=== PATIENT | male | born 1980 | race Caucasian/White ===

== ENCOUNTER 2017-09-04 20:31 | Emergency (ER) | payer SELFPAY | END 2017-09-04 21:07 | disposition admitted as inpatient to this hospital (09) | LOC: ERH 20:31 | DX: Z76.0 Encounter for issue of repeat prescription (principal) ==

== ENCOUNTER 2017-09-08 20:38 | Inpatient (IN) | payer OTHER ==
[~2017-09-08] VITALS: Ht 177.8 cm; Wt 66.2 kg
--- NOTE | 2017-09-08 21:09 | ED GENERAL ADULT ---
History of Present Illness General Chief Complaint: Psychiatric Related Complaint Stated Complaint: BIBA +SI Source: patient Exam Limitations: poor historian Vital Signs & Intake/Output Vital Signs & Intake/Output Vital Signs Date Time Temp Pulse Resp B/P B/P Pulse O2 O2 Flow FiO2 Mean Ox Delivery Rate 09/09 1452 85 18 127/72 100 Room Air 09/09 1156 63 18 105/64 100 Room Air 09/09 0553 97.8 70 18 113/60 98 Room Air 09/09 0006 98.4 78 18 125/78 96 Room Air 09/08 2054 98.1 80 18 130/75 98 Room Air ED Intake and Output 09/09 0000 09/08 1200 Intake Total 0 Output Total Balance 0 Intake, Oral 0 Allergies Coded Allergies: NO KNOWN ALLERGIES (01/21/15) Triage Note: PT BIBA ON PEER AFTER MOM CALLED PD FOR PT STATEMENTS OF SI. PT DENIES SI/HI AT THIS TIME. REPORTS HE DID NOT MEAN IT "I HAVE TOO MUCH TO LIVE FOR." Triage Nurses Notes Reviewed? yes Onset: Abrupt Duration: hour(s): Timing: recent history HPI: 09/08/17 11:30 PM 37-year-old man expressed a desire to injure himself through text thing his girlfriend. Police were called and he was brought in by ambulance. He currently denies suicidal ideation. He admits to drinking some alcohol. He also admits to being on Suboxone and taking gabapentin. He is concerned about his job tomorrow, he has a second interview. (Star Posada DO) Reconcile Medications Buprenorphine HCl/Naloxone HCl (Suboxone 8 MG-2 MG Sl Film) 8 MG-2 MG FILM 1 STR SL DAILY MAINTENCE (Reported) Bupropion HCl (Bupropion XL) 150 MG TAB.ER.24H 1 TAB PO QAM MENTAL HEALTH ( Reported) Gabapentin 400 MG CAPSULE 1 CAP PO TID MENTAL HEALTH (Reported) (Felipe Chew DO) Past History Travel History Traveled to [place] past 21 day No Medical History Any Pertinent Medical History? see below for history Neurological: NONE EENT: NONE Cardiovascular: NONE Respiratory: NONE Gastrointestinal: NONE Hepatic: NONE Renal: NONE Musculoskeletal: NONE Psychiatric: NONE Endocrine: NONE Surgical History Surgical History: N Psychosocial History What is your primary language Occitan Tobacco Use: Never used Family History Hx Contributory? No (Star Posada DO) Review of Systems Review of Systems Constitutional: Denies: fever. EENTM: Reports: no symptoms. Respiratory: Reports: no symptoms. Cardiovascular: Reports: no symptoms. GI: Reports: no symptoms. Genitourinary: Reports: no symptoms. Musculoskeletal: Reports: no symptoms. Skin: Reports: no symptoms. Neurological/Psychological: Reports: anxiety, depressed. Hematologic/Endocrine: Reports: no symptoms. Immunologic/Allergic: Reports: no symptoms. (Star Posada DO) Physical Exam Physical Exam General Appearance: well developed/nourished, alert, awake, anxious, moderate distress Head: atraumatic, normal appearance Eyes: Bilateral: normal appearance, PERRL, EOMI. Ears, Nose, Throat: normal pharynx, normal ENT inspection Neck: normal inspection Respiratory: no respiratory distress Cardiovascular: regular rate/rhythm Peripheral Pulses: 4+ radial (R), 4+ radial (L) Gastrointestinal: non-tender Back: normal range of motion Extremities: normal inspection Neurologic/Psych: no motor/sensory deficits, awake, alert, oriented x 3 Skin: intact, normal color, warm/dry Core Measures ACS in differential dx? No CVA/TIA Diagnosis: No Sepsis Present: No Sepsis Focused Exam Completed? No (Star Posada DO) Progress Differential Diagnoses I considered the following diagnoses in my evaluation of the patient: [ Depression, suicidal ideation, substance abuse] Plan of Care: Orders Procedure Date/time Status Regular Diet 09/09 B Active Admit to inpatient psych 09/09 1628 Active ED CRISIS PSYCH CONSULT 09/09 0036 Active EKG 09/08 2327 Active Add-on Test (ER Only) 09/08 2141 Active Continuous Observation Monitor 09/08 2141 Active ED CRISIS PSYCH CONSULT 09/08 2141 Active ETHANOL 09/08 2105 Complete URINE DRUG SCREEN FOR ER ONLY 09/08 2057 Complete CBC WITHOUT DIFFERENTIAL 09/08 2057 Complete BASIC METABOLIC PANEL 09/08 2057 Complete Current Medications Sig/Abhishek Start time Last Medication Dose Stop Time Status Admin Lorazepam 1 MG ONE ONE 09/09 1630 UNVr (Ativan) 09/09 1631 Benztropine Mesylate 1 MG Q6P PRN 09/09 0915 UNVr (Cogentin 1 MG Tablet) Haloperidol 5 MG Q6P PRN 09/09 0915 UNVr (Haldol) Lorazepam 2 MG Q6P PRN 09/09 0915 UNVr (Ativan) Gabapentin 400 MG Q8 09/09 0035 UNVr 09/09 (Neurontin) 1326 Laboratory Tests 09/08/172105: Serum Alcohol < 10.0 09/08/172105: Anion Gap 12, Estimated GFR > 60, BUN/Creatinine Ratio 14.4, Glucose 78, Calcium 9.3, CBC w Diff NO MAN DIFF REQ, RBC 4.28 L, MCV 88.8, MCH 30.6, MCHC 34.4, RDW 12.6, MPV 7.1 L, Gran % 54.3, Lymphocytes % 32.4, Monocytes % 9.0, Eosinophils % 3.9, Basophils % 0.4, Absolute Granulocytes 2.5, Absolute Lymphocytes 1.5, Absolute Monocytes 0.4, Absolute Eosinophils 0.2, Absolute Basophils 0, Urine Opiates Screen 932.00, Methadone Screen < 40, Barbiturate Screen < 60, Ur Phencyclidine Scrn < 6.00, Amphetamines Screen 500, U Benzodiazepines Scrn 134, Urine Cocaine Screen > 1000 H, Urine Cannabis Screen < 5.00 Initial ED EKG: none (Star Posada DO) Comments: 1138 hrs.: Discussed case with crisis staff. Involuntary commitment order completed, patient denying SI at present but his collateral comes from a 17 year long significant other relationship who states that he was testing her yesterday stating that she should stay goodbye to the kids for him and that he wished to . Bed search continues. 1628 hrs.: Crisis staff has completed her evaluation and recommended inpatient hospitalization here as a bed has now become available. I prescribed lorazepam 1 mg by mouth at the recommendation of crisis staff for the patient's ongoing agitation. (Felipe Chew DO) Departure Departure Condition: Stable Referrals: Patient Has No Primary Care Dr Departure Forms: Customer Survey General Discharge Information Comments The patient was signed out to Dr. Rojas at 11 PM. Pending evaluation by crisis. (Star Posada DO) Departure Disposition: STILL A PATIENT Clinical Impression Primary Impression: Cocaine abuse Secondary Impressions: Opioid abuse Comments pt to be signed out to dr. chew, 09/09/17, 7am, pending crises eval. (Crystal BATES,Zacarias Oh) Departure Time of Disposition: 1628 Psych Admission Note Psychiatric Admission: I have seen and evaluated AIDEN AVINA. I have also reviewed all the pertinent lab results and diagnostic results. AIDEN AVINA will be admitted to our inpatient Psychiatric unit for treatment and care. (Felipe Chew DO) Critical Care Note Critical Care Note Critical Care Time: 30-74 min (Star Posada DO)
[2017-09-08 21:18] LABS: ABSOLUTE BASOPHIL COUNT 0 /CUMM (0.0-0.2); ABSOLUTE EOSINOPHIL COUNT 0.2 /CUMM (0.0-0.7); ABSOLUTE GRANULOCYTE CT 2.5 /CUMM (1.4-6.5); ABSOLUTE LYMPH COUNT 1.5 /CUMM (1.2-3.4); ABSOLUTE MONOCYTE COUNT 0.4 /CUMM (0.10-0.60); BASOPHIL % 0.4 % (0.0-2.0); EOSINOPHIL % 3.9 % (0-5); GRANULOCYTE % 54.3 % (42.2-75.2); MEAN CORPUSCULAR HGB 30.6 PG (27.0-31.0); MEAN CORPUSCULAR HGB CONC 34.4 G/DL (33.0-37.0); MEAN CORPUSCULAR VOLUME 88.8 FL (80.0-94.0); MEAN PLATELET VOLUME 7.1 FL (7.4-10.4); PLATELET COUNT 304 /CUMM (130-400); RBC DISTRIBUTION WIDTH 12.6 % (11.5-14.5); RED BLOOD CELL CT 4.28 /CUMM (4.70-6.10); WHITE BLOOD CELL COUNT 4.5 /CUMM (4.8-10.8)
[2017-09-09] MEDS ORDERED: BUPROPION XL150 MG PO (08:25)
[2017-09-09] MEDS ORDERED: SUBOXONE 8 MG-1 EACH SL (08:25)
[2017-09-09] MEDS ORDERED: GABAPENTIN400 M2 PO (08:26)
--- NOTE | 2017-09-09 08:28 | ED PSYCH CRISIS CONSULTATION ---
Crisis Consult Basic Assessment Date of Consult: 09/09/17 Responsible Person/Accompanied By: self/biba/PEER Insurance Authorization: Insurance #1: Insurance name: SELF-PAY Phone number: Policy number: Group number: Authorization number: ED Provider: Patient's ED Provider: Star Posada DO Primary Care Physician: Patient's PCP: Viv Dang MD PCP's Current Psychiatrist: Viv Dang MD [phone] Chief Complaint: Psychiatric Related Complaint Patient's Quote: I was texting my gf. It was a dumb rant. Present Illness: Pt is a 37yo male biba last evening on an [place] [employer] PEER. The PEER documents that pt told his mother "I don't want to live anymore". Collateral provided by pt gf of 17yrs reports that pt sent her text yesterday " I'm taking my life and tell the kids I love them". Pt states he sent gf a text stating I'm sick of this stress. I want it to end. Pt states he is not suicidal and his text meant he wanted things to get better not end his life. Pt reports he would never kill himself stating "I would never do it to my kids or mother". Pt reports no prior psychiatric treatment hx. Pt reports a hx of oxycodone abuse and has been prescribed suboxone past 2 yrs at [facility] Current prescriber is Viv Dang at [facility] Pt reports he is also prescribed gabapentin and wellbutrin. Pt reports he is to begin court mandated treatment at [facility] today. Gf reports pt was at [facility] detox 2 weeks ago but has been using etoh and crack cocaine againe. Pt urine tox is positive for cocaine. Pt denies taking cocaine states "his friend got some percocets from "the dark web" that may have been laced with cocaine that he used. Pt reports recent decrease in etoh use and reports 3-4 beers 2x/wk. Pt reports recent financial stress due to not working since the fall. 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 Pt reports a hx of arrest for possession charges and open container charge. Pt denies gun access. Pt denies HI/AH/VH. Patient's Address: [address] [place] [address] Other Phone Number: Who Do You Live With? Family (fiance and 2 children) Family/Informants Interviewed: collateral provided by pt gf Therese Villanueva . She reports pt sent her a text yesterday "I'm taking my life and tell the kids I love them". She reports concern that pt has been stealing and pawning her belongings and she had him arrested the otherd . She reports he also had a DUI last week and has violated his probation. She reports he detoxed two weeks ago at [facility] but is using crack cocaine and alcohol again. She reports they have been together 17 yrs and she and his family are worried he is "going down hill" and he is going to hurt himself intentioanlly or unintentionally. Allergies - Coded Allergies: NO KNOWN ALLERGIES (01/21/15) Current Medications - Scheduled Medications Buprenorphine HCl/Naloxone HCl (Suboxone 8 MG-2 MG Sl Film) 8 MG-2 MG FILM 1 STR SL DAILY MAINTENCE #15 (Reported) Entered as Reported by Jeffrey Jackson on 09/09/17 0825 Bupropion HCl (Bupropion XL) 150 MG TAB.ER.24H 1 TAB PO QAM MENTAL HEALTH #15 (Reported) Entered as Reported by Jeffrey Jackson on 09/09/17 0825 Gabapentin 400 MG CAPSULE 1 CAP PO TID MENTAL HEALTH #180 (Reported) Entered as Reported by Jeffrey Jackson on 09/09/17 0826 Laboratory Results: Laboratory Tests 09/08/172105: Serum Alcohol < 10.0 09/08/172105: Anion Gap 12, Estimated GFR > 60, BUN/Creatinine Ratio 14.4, Glucose 78, Calcium 9.3, CBC w Diff NO MAN DIFF REQ, RBC 4.28 L, MCV 88.8, MCH 30.6, MCHC 34.4, RDW 12.6, MPV 7.1 L, Gran % 54.3, Lymphocytes % 32.4, Monocytes % 9.0, Eosinophils % 3.9, Basophils % 0.4, Absolute Granulocytes 2.5, Absolute Lymphocytes 1.5, Absolute Monocytes 0.4, Absolute Eosinophils 0.2, Absolute Basophils 0, Urine Opiates Screen 932.00, Methadone Screen < 40, Barbiturate Screen < 60, Ur Phencyclidine Scrn < 6.00, Amphetamines Screen 500, U Benzodiazepines Scrn 134, Urine Cocaine Screen > 1000 H, Urine Cannabis Screen < 5.00 Past History Past Medical History Neurological: NONE EENT: NONE Cardiovascular: NONE Respiratory: NONE Gastrointestinal: NONE Hepatic: NONE Renal: NONE Musculoskeletal: NONE Psychiatric: NONE Endocrine: NONE Past Surgical History Surgical History: none Psychosocial History Strengths/Capabilities: drives a fork lift. Reports committment to reduce substance use Psychiatric Treatment History Psych Treatment Psychiatric Treatment No Inpatient Treatment No Outpatient Treatment No Substance Use/Abuse History Drug Use/Abuse 1 Substances Used/Abused Yes Substance Used/Abused Prescribed Opiates (Suboxone) First Use 2 yrs ago Last Used yesterday How often daily For how long 2 yrs Drug Use/Abuse 2 Substances Used/Abused Yes Substance Used/Abused Alcohol How much used/taken 3-4 beers How often 2x/wk Drug Use/Abuse 3 Substances Used/Abused Yes Substance Used/Abused Crack Cocaine Last Used postive tox screen for cocaine-pt minimizes use Substance Abuse Treatment Substance Abuse Treatment Past Substance Abuse TX Yes Inpatient Treatment Yes Outpatient Treatment Yes Location of Treatment [facility]; [facility] [place] Reason for Treatment etoh, cocaine and opiates Dates of Treatment pt reports starting suboxone 2 yrs ago; reports pt detoxed two weeks ago Response to Treatment urine tox screen is positive for cocaine Comments: pt reports hx of oxycodone abuse and starting suboxone tx 2 yrs ago at [facility] Pt minimizing etoh and cocaine use. Gf reports pt has significant problems with both. She reports he is smoking crack and received a dui last week. Current Mental Status Mental Status Orientation: Person, Place, Situation Affect: Anxious Speech: Pressured, WNL Neuro-vegetative: WNL Appearance Appearance- Dress/Hygiene: hospital scrubs; tattoos; eyes blood shot. Behaviors Thought Process: Irrational Thought Content: WNL Memory: WNL Insight: Poor SI/HI Risk Assessment Past Suicidal Ideation/Attempts No Current Suicidal Ideation/Att No (pt denies) Past Homicidal Ideation/Att: No Current Homicidal Ideation/Attempts No Degree of Intent: None Danger To: Self Gravely Disabled: Lack of Insight, Poor Impulse Control, Poor Judgment Risk Factors: high anxiety/distress, substance abuse, poor impulse control, male Lethality Ratin PTSD Checklist PTSD Done? patient declined ED Management Sitter: Yes Restraints: No DSM5/PS Stressors/Medical Prob Diagnosis' (DSM 5, Stressors, Medical): Unspecified Depressive D/O F32.9 Cocaine Use D/O F14.20 Opiate Use D/O in maintenance therapy F11.20 Alcohol Use D/O F10.20 family/relationship conflict legal issues unemployment Current GAF: 25 Comments: Pt admits to stress in his relationships and having difficulty getting a job. Pt agrees he sent suicidal texts messages but denies plan or intent. Departure Disposition Psych Medical Clearance Date: 09/09/17 Medically Cleared at: 0730 Time Started: 729 Time Ended: 814 Psychiatrist Consulted: Felix Gold MD (Felix Gold MD) Date Disposition Established: 09/09/17 Time Disposition Established: 844 Plan for Disposition - Modality: Inpatient Psychiatry Referrals Laurence BATES,Viv Ford (PCP/Family)
--- NOTE | 2017-09-09 13:55 | ED PSY CRISIS COLLATERAL NOTE ---
Collateral Note Collateral Note Family/Inform/Luis A Contacts: Recieved call from Viv Dang MD [phone] from the [facility]. She states she saw the pt once on 09/03/17. She prescribed him a 2 week supply of suboxone. He is scheduled to see her weekly. Her plan is to decrease gabepentin (currently 800mg) due to sedation. She reports previous prescriber was Dr. Joe Bull who last saw pt on 08/06/17.
--- NOTE | 2017-09-09 16:02 | IP CRISIS DIAG ASSESS PSYCH ---
See Addendum Diagnostic Assessment Basic Assessment Insurance Authorization: Insurance #1: Insurance name: BENNETT IVORY Phone number: Policy number: [id number] Group number: Authorization number: [id number] Primary Care Physician: Patient's PCP: Laurence BATES,Viv Ford PCP's Patient's Quote: I was texting my gf. It was a dumb rant. Present Illness: Pt is a 37yo male biba last evening on an [place] [employer] PEER. The PEER documents that pt told his mother "I don't want to live anymore". Collateral provided by pt gf of 17yrs reports that pt sent her text yesterday " I'm taking my life and tell the kids I love them". Pt states he sent gf a text stating I'm sick of this stress. I want it to end. Pt states he is not suicidal and his text meant he wanted things to get better not end his life. Pt reports he would never kill himself stating "I would never do it to my kids or mother". Pt reports no prior psychiatric treatment hx. Pt reports a hx of oxycodone abuse and has been prescribed suboxone past 2 yrs at [facility]. Current prescriber is Viv Dang at [facility]. Pt reports he is also prescribed gabapentin and wellbutrin. Pt reports he is to begin court mandated treatment at [facility] today. Gf reports pt was at [facility] detox 2 weeks ago but has been using etoh and crack cocaine againe. Pt urine tox is positive for cocaine. Pt denies taking cocaine states "his friend got some percocets from "the dark web" that may have been laced with cocaine that he used. Pt reports recent decrease in etoh use and reports 3-4 beers 2x/wk. Pt reports recent financial stress due to not working since the fall. 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 Pt reports a hx of arrest for possession charges and open container charge. Pt denies gun access. Pt denies HI/AH/VH. Patient's Address: [address] [place] [address] Other Phone Number: Who Do You Live With? Family (fiance and 2 children) Feel Safe Where You Live? Yes Feel Safe in Your Relationship Yes Marital Status: single Do You Have Children? Yes Ages? 16,9 Primary Language? Singaporean Language(s) Spoken At Home: Singaporean Family/Informants Interviewed: collateral provided by pt gf Therese Villanueva . She reports pt sent her a text yesterday "I'm taking my life and tell the kids I love them". She reports concern that pt has been stealing and pawning her belongings and she had him arrested the otherd . She reports he also had a DUI last week and has violated his probation. She reports he detoxed two weeks ago at [facility] but is using crack cocaine and alcohol again. She reports they have been together 17 yrs and she and his family are worried he is "going down hill" and he is going to hurt himself intentioanlly or unintentionally. Allergies - Coded Allergies: NO KNOWN ALLERGIES (01/21/15) Current Medications - Scheduled Medications Buprenorphine HCl/Naloxone HCl (Suboxone 8 MG-2 MG Sl Film) 8 MG-2 MG FILM 1 STR SL DAILY MAINTENCE #15 (Reported) Entered as Reported by Jeffrey Jackson on 09/09/17 0825 Bupropion HCl (Bupropion XL) 150 MG TAB.ER.24H 1 TAB PO QAM MENTAL HEALTH #15 (Reported) Entered as Reported by Jeffrey Jackson on 09/09/17 0825 Gabapentin 400 MG CAPSULE 1 CAP PO TID MENTAL HEALTH #180 (Reported) Entered as Reported by Jeffrey Jackson on 09/09/17 0826 Consequences of Psych Med Use: pt reports Dr Dang plans to decrease his wellbutrin and try him on an anti anxiety med Lab Results: Laboratory Tests 09/08/172105: Serum Alcohol < 10.0 09/08/172105: Anion Gap 12, Estimated GFR > 60, BUN/Creatinine Ratio 14.4, Glucose 78, Calcium 9.3, CBC w Diff NO MAN DIFF REQ, RBC 4.28 L, MCV 88.8, MCH 30.6, MCHC 34.4, RDW 12.6, MPV 7.1 L, Gran % 54.3, Lymphocytes % 32.4, Monocytes % 9.0, Eosinophils % 3.9, Basophils % 0.4, Absolute Granulocytes 2.5, Absolute Lymphocytes 1.5, Absolute Monocytes 0.4, Absolute Eosinophils 0.2, Absolute Basophils 0, Urine Opiates Screen 932.00, Methadone Screen < 40, Barbiturate Screen < 60, Ur Phencyclidine Scrn < 6.00, Amphetamines Screen 500, U Benzodiazepines Scrn 134, Urine Cocaine Screen > 1000 H, Urine Cannabis Screen < 5.00 Toxicology Screen Completed? Yes Results: positive Symptoms of Use: collateral reports pt is using crack cocaine Past History Abuse/Trauma History Trauma History/Current Trauma: Denies Legal History Current Legal Status: alcohol/drug legal problm, on probation Have you ever been arrested? 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 Psychiatric Treatment History Psych Treatment Psychiatric Treatment No Inpatient Treatment No Outpatient Treatment No Risk Factors: high anxiety/distress, substance abuse, poor impulse control, male Substance Use/Abuse History Drug Use/Abuse minimum 12mo Hx Substances Used/Abused Yes Substance Used/Abused Crack Cocaine First Use 2 yrs ago Last Used postive tox screen for cocaine-pt minimizes use How much used/taken 3-4 beers How often 2x/wk For how long 2 yrs Substance Abuse Treatment Substance Abuse Treatment Past Substance Abuse TX Yes Inpatient Treatment Yes Outpatient Treatment Yes Location of Treatment [facility]; [facility] [place] Reason for Treatment etoh, cocaine and opiates Dates of Treatment pt reports starting suboxone 2 yrs ago; reports pt detoxed two weeks ago Response to Treatment urine tox screen is positive for cocaine Education History Highest Level of Education: high school/GED Preferred Learning Style: visual, auditory, experiential Current Mental Status Mental Status Orientation: Person, Place, Situation Affect: Anxious Speech: Pressured, WNL Neuro-vegetative: WNL Appearance Appearance- Dress/Hygiene: hospital scrubs; tattoos; eyes blood shot. Behaviors Thought Process: Irrational Thought Content: WNL Memory: WNL Insight: Poor SI/HI Risk Assessment - Minimum 6mo History- Past Suicidal Ideation/Attempts No Current Suicidal Ideation/Att No (pt denies) Past Homicidal Ideation/Att: No Current Homicidal Ideation/Attempts No Degree of Intent: None Danger To: Self Gravely Disabled: Lack of Insight, Poor Impulse Control, Poor Judgment Risk Factors: high anxiety/distress, substance abuse, poor impulse control, male Lethality Ratin Needs/Init TX Plan/Goals: Psychiatric Evaluation Medication assessment Individual, family and group meetings Coordinated discharge planning AUDIT-C Questionnaire: AUDIT-C Questionnaire: Response Value ETOH use in the past year 4 or more per week 4 # drinks typical/day 10 or more 4 6 or > drinks per occasion Daily/Almost Daily 4 Total 12 DSM5/PS Stressors/Medical Prob Diagnosis' (DSM 5, Stressors, Medical): Unspecified Depressive D/O F32.9 Cocaine Use D/O F14.20 Opiate Use D/O in maintenance therapy F11.20 Alcohol Use D/O F10.20 family/relationship conflict legal issues unemployment Current GAF: 25 Comments: Pt admits to stress in his relationships and having difficulty getting a job. Pt agrees he sent suicidal texts messages but denies plan or intent.
[2017-09-09 18:58] VITALS: BP 121/68
--- NOTE | 2017-09-09 20:07 | History & Physical ---
General Information and HPI MD Statement: I have seen and personally examined AIDEN AVINA and documented this H&P. The patient is a 37 year old M who presented with a patient stated chief complaint of [depression, ?SI]. Source of Information: patient Exam Limitations: no limitations History of Present Illness: 37 yo M with h/o anxiety, depression, substance (oxycodone) abuse on suboxone from [facility], is admitted to Inpatient Psychiatry for depression and possible suicidal ideation. Patient reports he was frustrated and angry with his girlfriend, so he made some comments on his texts to his girlfriend, although he reports having no intention of harming himself. Please refer to Psych H and P for full details. He has a h/o alcohol abuse and recently finished alcohol detox at [facility]. He did take 1 drink with his meals since he finished his detox but reports not consuming heavily. He states he ran out of suboxone so took Percocet off the street and thinks it was contaminated with cocaine. He denies using cocaine. He denies IV drug use. Patient is frustrated that he does not have a job, and he missed his interview appointment that was scheduled for today. He currently denies chest pain, palpitations, dyspnea, GI or symptoms. Allergies/Medications Allergies: Coded Allergies: NO KNOWN ALLERGIES (01/21/15) Home Med list Buprenorphine HCl/Naloxone HCl (Suboxone 8 MG-2 MG Sl Film) 8 MG-2 MG FILM 1 STR SL DAILY MAINTENCE (Reported) Bupropion HCl (Bupropion XL) 150 MG TAB.ER.24H 1 TAB PO QAM MENTAL HEALTH ( Reported) Gabapentin 400 MG CAPSULE 1 CAP PO TID MENTAL HEALTH (Reported) Compliance With Home Meds: POOR Past History Travel History Traveled to [place] past 21 day No Medical History Neurological: NONE EENT: NONE Cardiovascular: NONE Respiratory: NONE Gastrointestinal: NONE Hepatic: NONE Renal: NONE Musculoskeletal: NONE Psychiatric: anxiety, depression, substance abuse Endocrine: NONE Isolation History: Standard Surgical History Surgical History: none Past Family/Social History Family History Relations & Conditions if any Relation not specified for: *No pertinent family history Psychosocial History Where do you live? Home Who Do You Live With? self Services at Home: None Primary Language: Montserratian Smoking Status: Current Everyday Smoker ETOH Use: occasional use Illicit Drug Use: cocaine, oxycodone Functional Ability ADLs Independent: dressing, eating, toileting, bathing. Ambulation: independent Review of Systems Review of Systems Constitutional: Denies: chills, fever, malaise, weakness. EENTM: Reports: no symptoms. Cardiovascular: Denies: chest pain, orthopena, palpitations, syncope. Respiratory: Denies: cough, short of breath, sputum production. GI: Denies: abdominal pain, diarrhea, nausea, vomiting. Genitourinary: Denies: dysuria, frequency, nocturia. Musculoskeletal: Denies: back pain, joint pain, muscle pain. Neurological/Psychological: Reports: see HPI. All Other Systems: Reviewed and Negative Exam & Diagnostic Data Last 24 Hrs of Vital Signs/I&O Vital Signs Date Time Temp Pulse Resp B/P B/P Pulse O2 O2 Flow FiO2 Mean Ox Delivery Rate 09/09 1858 97.7 67 121/68 09/09 1722 98.8 85 18 132/67 99 Room Air 09/09 1452 85 18 127/72 100 Room Air 09/09 1156 63 18 105/64 100 Room Air 09/09 0553 97.8 70 18 113/60 98 Room Air 09/09 0006 98.4 78 18 125/78 96 Room Air 09/08 2054 98.1 80 18 130/75 98 Room Air Intake & Output 09/09 1600 09/09 0800 09/09 0000 Intake Total 0 Output Total Balance 0 Intake, Oral 0 Physical Exam General Appearance Alert, Oriented X3, Cooperative, No Acute Distress Skin No Rashes, No Breakdown HEENT Atraumatic, EOMI, Mucous Membr. moist/pink Neck Supple Cardiovascular Regular Rate, Normal S1, Normal S2, No Murmurs Lungs Clear to Auscultation, Normal Air Movement Abdomen Normal Bowel Sounds, Soft, No Tenderness Neurological Exam Findings: Normal Gait, Normal Speech, Strength at 5/5 X4 Ext, Cranial Nerves 3-12 NL Cranial Nerves II through XII: Intact Extremities No Edema, Normal Pulses, No Tenderness/Swelling Last 24 Hrs of Labs/Mann: Laboratory Tests 09/08/172105: Serum Alcohol < 10.0 09/08/172105: Anion Gap 12, Estimated GFR > 60, BUN/Creatinine Ratio 14.4, Glucose 78, Calcium 9.3, CBC w Diff NO MAN DIFF REQ, RBC 4.28 L, MCV 88.8, MCH 30.6, MCHC 34.4, RDW 12.6, MPV 7.1 L, Gran % 54.3, Lymphocytes % 32.4, Monocytes % 9.0, Eosinophils % 3.9, Basophils % 0.4, Absolute Granulocytes 2.5, Absolute Lymphocytes 1.5, Absolute Monocytes 0.4, Absolute Eosinophils 0.2, Absolute Basophils 0, Urine Opiates Screen 932.00, Methadone Screen < 40, Barbiturate Screen < 60, Ur Phencyclidine Scrn < 6.00, Amphetamines Screen 500, U Benzodiazepines Scrn 134, Urine Cocaine Screen > 1000 H, Urine Cannabis Screen < 5.00 Diagnostic Data EKG Results Sinus rhythm, no acute changes. Assessment/Plan Assessment: 37 yo M with h/o substance use disorder on suboxone therapy, is admitted for management of depression and SI. - Continue management as per Psych team. - Smoking cessation counseling. DVT ppx - low risk, early ambulation. As Ranked By This Provider Problem List: 1. Cocaine abuse 2. Opioid abuse Miscellaneous Miscellaneous Documentation Attending Case Discussed With: Mak Soto MD Primary Care Physician: Viv Dang MD Patient sees these Specialists -- Level of Patient Care: AURELIO Snider MD Review Statement Attending Statement Attending MD Statement: examined this patient, discuss w/resident/PA/MECHANOTHERAPIST
--- NOTE | 2017-09-09 20:07 | Admission Certification ---
Admission Certification Certification Statement - As attending physician, I certify that at the time of - admission, based on clinical presentation, severity of - symptoms, need for further diagnostic testing and - therapeutic interventions, and risk of adverse outcomes - without in-hospital treatment, in my clinical assessment, - this patient requires an acute hospital stay for a minimum - of two nights or longer. I have also considered psychsocial - factors such as support system, advanced age, financial - issues, cognitive issues, and failed out-patient treatments, - past re-admission history, safety of patient, and lack of - compliance as applicable. Specific rationale supporting this admission is: Depression.
[2017-09-10 07:39] VITALS: BP 122/60
[2017-09-10 12:23] VITALS: BP 108/65
--- NOTE | 2017-09-10 13:42 | SOCIAL WORKER PROG NOTE PSYCH ---
Social Work Progress Note Progress Note Carlos Enrique was given paperwork this morning from the police notifying him of his court date on 09/18. Carlos Enrique reports he really shouldn't be here and that his girlfriend of 17 years lied about him being suicidal so he can get help. He seemed pressured this morning surrounding these circumstances. Later in the afternoon, Carlos Enrique appeared calmer and less pressured about leaving. He seemed okay with the plan to contact his girlfriend Helene and have her come in in the next day or two for a family meeting. He denies current SI and says he has never been suicidal. He denies HI, denies feeling sad (only about being in the hospital). Reports some anxiety rating it as a 6 on a scale from 0-10 (10 being most severe). Triggers for anxiety seem to be around fighting with his girlfriend and just keeping up with the structure of the day and getting his kids to where they need to go. Asked what he and his girlfriend seem to fight about? He said "finances." He has been collecting unemployment up until May. He is now looking to find a job. Reports it has been difficult to find employment in the salary he is looking for. He was finally offered a position and was supposed to start this past Thursday and he ended up here. I asked if he had contacted them? He said he hadn't and needed the phone number. I offered to look up the number for him. I gave him the number for [employer]. He wasn't sure if it was the correct number, but he would try it. He is hoping to some how save this job. Talked about detoxing from alcohol at [facility] for 7 days and then having scheduled follow up for [facility] yesterday, which he ended up missing. He discharged from detox on August 20. Admits to having a drink or two a week since then. He denied other substance use, but then said he took some Percocet for a few days that was laced with Cocaine. He is on Suboxone through [email or web address]. He sees Dr. Dang. He only goes there for med management. Probation mandated the IOP tx and he said he is going to do that with [facility]. He signed a release for them. Overall affect appeared appropriate. Smiled occasionally. Left Helene Villanueva [phone] a voicemail about setting up a family meeting. She called back and scheduled for tomorrow at 3:15pm.
--- NOTE | 2017-09-10 14:46 | CPS PROVIDER INIT ASMT PSYCH ---
Psychiatric Admission Rat Culturist's Note Reviewed: Yes Patient Seen and Examined: Yes Identifying Information: The patient is a 37-year-old single white male Chief Complaint: The patient insists that his girlfriend lied in order to get him to the emergency room. However, notes from the crisis indicated that he did acknowledge that his texting his girlfriend was "a dumb rant" Reaction to Hospitalization: The patient was very displeased with being in the hospital he is on a physician emergency certificate History of Present Illness Onset of Illness: Pt is a 37yo male biba last evening on an [place] [employer] PEER. The PEER documents that pt told his mother "I don't want to live anymore". Collateral provided by pt gf of 17yrs reports that pt sent her text yesterday " I'm taking my life and tell the kids I love them". Pt states he sent gf a text stating I'm sick of this stress. I want it to end. Pt states he is not suicidal and his text meant he wanted things to get better not end his life. Pt reports he would never kill himself stating "I would never do it to my kids or mother". Pt reports no prior psychiatric treatment hx. Pt reports a hx of oxycodone abuse and has been prescribed suboxone past 2 yrs at [facility]. Current prescriber is Viv Dang at [facility]. Pt reports he is also prescribed gabapentin and wellbutrin. Pt reports he is to begin court mandated treatment at [facility] today. Gf reports pt was at [facility] detox 2 weeks ago but has been using etoh and crack cocaine againe. Pt urine tox is positive for cocaine. Pt denies taking cocaine states "his friend got some percocets from "the dark web" that may have been laced with cocaine that he used. Pt reports recent decrease in etoh use and reports 3-4 beers 2x/wk. Pt reports recent financial stress due to not working since the fall. 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 Pt reports a hx of arrest for possession charges and open container charge. Pt denies gun access. Pt denies HI/AH/VH. Circumstances Leading to Admission: Pt is a 37yo male biba last evening on an [place] [employer] PEER. The PEER documents that pt told his mother "I don't want to live anymore". Collateral provided by pt gf of 17yrs reports that pt sent her text yesterday " I'm taking my life and tell the kids I love them". Pt states he sent gf a text stating I'm sick of this stress. I want it to end. Pt states he is not suicidal and his text meant he wanted things to get better not end his life. Pt reports he would never kill himself stating "I would never do it to my kids or mother". Pt reports no prior psychiatric treatment hx. Pt reports a hx of oxycodone abuse and has been prescribed suboxone past 2 yrs at [facility]. Current prescriber is Viv Dang at [facility]. Pt reports he is also prescribed gabapentin and wellbutrin. Pt reports he is to begin court mandated treatment at [facility] today. Gf reports pt was at [facility] detox 2 weeks ago but has been using etoh and crack cocaine againe. Pt urine tox is positive for cocaine. Pt denies taking cocaine states "his friend got some percocets from "the dark web" that may have been laced with cocaine that he used. Pt reports recent decrease in etoh use and reports 3-4 beers 2x/wk. Pt reports recent financial stress due to not working since the fall. 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 Pt reports a hx of arrest for possession charges and open container charge. Pt denies gun access. Pt denies HI/AH/VH. Problem(s) Justifying Need for Admission: See above Other HPI: See up Past Psychiatric History Past Diagnosis(es)- if any: See above Past Precipitating Factors- if any: See above - Include inpatient and outpatient treatment Treatment History: See above History of Suicide Attempts or Gestures Denied Substance Abuse History: The patient has history of opioid use disorder currently on Suboxone maintenance , a acknowledge that he ran out of Suboxone and used what he thought was a Percocet pill but he reported that he admits to being cuts with cocaine Allergies: Coded Allergies: NO KNOWN ALLERGIES (01/21/15) Home Med List: Suboxone 8 mg daily - Include any medical condition(s) that may - impact the patient's recovery/remission Past History Medical History Neurological: NONE EENT: NONE Cardiovascular: NONE Respiratory: NONE Gastrointestinal: NONE Hepatic: NONE Renal: NONE Musculoskeletal: NONE Psychiatric: anxiety, depression, substance abuse Endocrine: NONE Blood Disorders: NONE Cancer(s): NONE STATION MASTER/Reproductive: NONE History of MRSA: No History of VRE: No History of CDIFF: No Isolation History: Standard Surgical History Surgical History: non-contributory Psychiatric Family/Social Hx Family History Psychiatric Illness: Was not explored Substance Use: Was not explored Suicides: Was not explored Social History Living Situation: Was living with long-term partner on the mother of his children for 17 years Significant Relationships (family/friends): Girlfriend/mother of his children Education: C biopsychosocial assessment by high school social studies tutor Vocation/Occupation: See the biopsychosocial assessment by the high school social studies tutor Legal: See the biopsychosocial assessment by the high school social studies tutor Healthly Behaviors Screening Tobacco Screening Tobacco Use from ED Docu: Never used - If tobacco counseling indicated - the following topics are required. - #1 Recognizing dangerous situations. - #2 Coping Skills. - #3 Basic information about quitting. Status of Tobacco Cessation Counseling: Not Applicable Cessation Med Status Not Applicable Alcohol Screening - ETOH screen POS if BAL >=80 or Audit-C>= M4/F3 Audit-C Score from Diag Assess: 12 Blood Alcohol Level: Laboratory Tests 09/08 2105 Toxicology Serum Alcohol (<10 MG/DL) < 10.0 Alcohol Use Screening Results: Pos per Audit C &/or BAL - If ETOH counseling indicated - the following topics are required. - #1 Express concern about the patient's - drinking at unhealthy levels, include informing - of national norms for moderate drinking: - men <= 14 drinks/week, max 4 drinks/occasion - women <= 7 drinks/week, max 3 drinks/occasion - #2 Providing feedback, including linking alcohol to - negative physical effects (liver injury, hypertension) - negative emotional effects (relationship problems and - depression) - negative occupational consequences (reduced work - performance) - #3 Advising the patient to abstain from alcohol or - to drink below national norms for moderate drinking - (as listed above). Status of ETOH Use Counseling: #1, #2 AND #3 Completed. Metabolic Screening - Screen if on a Neuroleptic Medication - Metabolic screening should include: - Blood Pressure, BMI, Glucose or Hgb A1c, & a - Lipid profile from within the past 365 days. Metabolic Screening ([X]) Not Applicable, patient not on a neuroleptic. Exam and Plan Mental Status Examination Ambulation Status: Patient was steady on his feet Appearance: Unremarkable appearance Attitude towards examiner: Cooperative Psychomotor activity: Increased psychomotor activity Behavior: No bizarre behaviors Quality of speech: Talkative with some pressure Affect: Anxious restless Mood: Denied feeling depressed Suicidal Ideation: Denied thoughts of suicide Homicidal Ideation: Denied thoughts of homicide Hallucinations: Denied hallucinations Paranoid/Delusional Material: Denied feeling paranoid, there were no delusions during the interview Difficulties with thought organization: Patient was coherent, there were no thought disorders Insight: Poor insight Judgment: Poor judgment Orientation: Alert and oriented to time, place, and person. Cognition: He showed reasonable attention and concentration during the interview, he did not seem to have difficulties with information processing. Memory Function: There were no deficits in his short-term memory Estimate of intellectual functioning: Average intelligence Assets/Strengths Patient Identified Assets/Strengths: The patient seems to be physically healthy, intelligent, and resourceful. Impression/Plan Impression and Plan: 37-year-old single white male who presented to the emergency room on a police emergency examination request after his girlfriend called 911 because she received texts from him allegedly talking of suicide. The patient adamantly denied all of that. And he claims that his girlfriend is lying out of spite - Include all active medical diagnosis that require tx DSM 5 Diagnosis(es): Unspecified depressive disorder Opioid use disorder on maintenance therapy Other specified personality disorder, some antisocial and narcissistic traits. - Initial Tx Plan for Active Psych & Medical Conditions Treatment Plan: Inpatient psychiatric care - Factors that would help patient function - in a less restrictive setting. Factors: Patient will be discharge if he continues to deny suicidal ideation for 2 consecutive days
[2017-09-10 15:52] VITALS: BP 114/65
--- NOTE | 2017-09-10 20:04 | SOCIAL WORKER SOCIAL HX PSYCH ---
Social History Basic Assessment Insurance Authorization: Insurance #1: Insurance name: [employer] Phone number: Policy number: [id number] Group number: Authorization number: Curr Source of Income/Entitlements: unemployment Primary Care Physician: Patient's PCP: Viv Dang MD PCP's Primary Language? Moroccan Language(s) Spoken At Home: Moroccan Living Situation Rents or Owns Home? rents Feel Safe Where You Are Living Yes Feel Safe in Relationships? Yes Allergies - Coded Allergies: NO KNOWN ALLERGIES (01/21/15) Current Medications - Scheduled Medications Buprenorphine HCl/Naloxone HCl (Suboxone 8 MG-2 MG Sl Film) 8 MG-2 MG FILM 1 STR SL DAILY MAINTENCE #15 (Reported) Entered as Reported by Jeffrey Jackson on 09/09/17824 Last Taken: 8MG-2MG on 09/09/17 1325 Bupropion HCl (Bupropion XL) 150 MG TAB.ER.24H 1 TAB PO QAM MENTAL HEALTH #15 (Reported) Entered as Reported by Jeffrey Jackson on 09/09/17824 Last Taken: 150MG on 09/09/17 1829 Gabapentin 400 MG CAPSULE 1 CAP PO TID MENTAL HEALTH #180 (Reported) Entered as Reported by Jeffrey Jackson on 09/09/17825 Last Taken: 09/09/17 1326 Past History Past Medical History Neurological: NONE EENT: NONE Cardiovascular: NONE Respiratory: NONE Gastrointestinal: NONE Hepatic: NONE Renal: NONE Musculoskeletal: NONE Psychiatric: anxiety, depression, substance abuse Endocrine: NONE Blood Disorders: NONE Cancer(s): NONE MANAGER OUTREACH/Reproductive: NONE Past Surgical History Surgical History: none /Family History Place/Country of Origin: [place], [place] Childhood Family Constellation: Mom and step dad since 8 years old. Older sister, and 3 younger sisters Primary Childhood Caretakers: mother, step-parent Family Life During Childhood: good upbringing DCF Involvement? No Mother's Age (Current/): 57 Relationship w/Mother: "mama's boy" she's my best friend Relationship w/Father: Step Dad gets a long with "he's my Dad" Any Sibling(s)? Yes Sibling's Gender(s)/Age(s): female Sibling 1:, female Sibling 2:, female Sibling 3:, female Sibling 4: Relationship w/Sibling(s): we are all close Relationship w/Friends: I have 2 lifelong friends Family Psych/Sub Abuse/Add Hx: denies Abuse/Trauma History Trauma History/Current Trauma: Denies Legal History Current Legal Status: alcohol/drug legal problm Pending Court Dates: October 2017 Have you ever been arrested Yes Hx of Juvenile Legal Charges? No Hx of Adult Legal Charges? Yes If Yes: misdemeanor List/Date Most Recent Lgl Chgs: possession of narcotics Psychosocial History Primary Support System: , mother Strengths/Capabilities: Reports committment to reduce substance use/ mandated to tx per court Weaknesses: substance abuse Last Physical: 2018 History of Seizures? No History of Blackouts? No ADL Limitations: unk [place]/Social/Peer Relations few close friends Meaningful Activities: sports Childhood Scientology: Baptist Current Protestant Affiliation: Yazidism Is Spirituality Important to You? yes Cultural/Ethnic Issues: n/a Are There Developmental Issues? No Milestones Achieved: fine motor, gross motor Psychiatric Treatment History Psych Treatment Inpatient Treatment No Outpatient Treatment No Psychodynamic Issues: recent relaspe/ court involvement and family discord Risk Factors: high anxiety/distress, substance abuse, poor impulse control, male Substance Use/Abuse History Drug Use/Abuse:Min 12 mo hx Substance Used/Abused Crack Cocaine First Use 2 yrs ago Last Used postive tox screen for cocaine-pt minimizes use How much used/taken 3-4 beers How often 2x/wk For how long 2 yrs Have Had Periods of Sobriety? Yes Symptoms of Use: collateral reports pt is using crack cocaine Substance Abuse Treatment Substance Abuse Treatment Inpatient Treatment Yes Outpatient Treatment Yes Location of Treatment [facility]; [facility] Reason for Treatment etoh, cocaine and opiates Dates of Treatment pt reports starting suboxone 2 yrs ago; reports pt detoxed two weeks ago Response to Treatment urine tox screen is positive for cocaine Sexual History Sexually Active Yes # of partners 1 Sexual Orientation Heterosexual Use of Protection No Education History Highest Level of Education: did not complete HS Highest Grade Completed: 11th Number of College Years: 0 Preferred Learning Style: visual, auditory, experiential HX of Learning Difficulties: None reported Barriers to Learning: None reported Special Communication Needs: None reported Employment History Employment Unemployed Attendance: Normal Performance: Average Comments: was working at a [employer] History Have You Been in The ? No Current Mental Status Mental Status Orientation: Person, Place, Situation Affect: Anxious Speech: Pressured, WNL Neuro-vegetative: WNL Appearance Appearance- Dress/Hygiene: hospital scrubs; tattoos; eyes blood shot. Behaviors Thought Process: Irrational Thought Content: WNL Memory: WNL Insight: Poor SI/HI Risk Assessment Past Suicidal Ideation/Attempts No Current Suicidal Ideation/Att No (pt denies) Past Homicidal Ideation/Att: No Current Homicidal Ideation/Attempts No Degree of Intent: None Danger To: Self Gravely Disabled: Lack of Insight, Poor Impulse Control, Poor Judgment Lethality Ratin - Conclusion and Recommendations for treatment - and discharge planning
[2017-09-10 20:20] VITALS: BP 125/72
[2017-09-11 07:42] VITALS: BP 109/64
--- NOTE | 2017-09-11 08:24 | CP SOUTH PROGRESS NOTE PSYCH ---
Psych (Inpt) Progress Note Progress Note Treatment team discussed Pt's progress, treatment plan, and aftercare plans. Treatment team included: LCSWs, RNs, Group & Activity Therapy staff, and psychiatrist. Vital Signs Date Time Temp Pulse B/P 09/11 0742 97.3 89 109/64 09/11 2019 98.6 75 125/72 Mental Status Examination The patient was steady on his feet. He was cooperative. He showed increased psychomotor activity/fidgetiness No bizarre behaviors He was talkative with some pressure, he was anxious/ restless, denied feeling depressed, denied thoughts of suicide, denied thoughts of homicide, denied hallucinations, denied feeling paranoid, there were no delusions during the interview, patient was coherent, there were no thought disorders, he was alert and oriented to time, place, and person. He showed reasonable attention and concentration during the interview, he did not seem to have difficulties with information processing. There were no deficits in his short-term memory Assessment: 37-year-old single white male who presented to the emergency room on a police emergency examination request after his girlfriend called 911 because she received texts from him allegedly talking of suicide. The patient adamantly denied all of that. And he claims that his girlfriend is lying out of spite Diagnoses: Unspecified depressive disorder Opioid use disorder on maintenance therapy Other specified personality disorder, some antisocial and narcissistic traits. Treatment Plan Update: may be discharged home after family meeting Buprenorphine/ 1 TAB DAILY Bupropion HCl 150 MG DAILY Gabapentin 1,200 MG TID Sig/Abhishek Start time Last Acetaminophen 650 MG Q4P PRN 09/09 1714 AC PO Al Hydroxide/Mg 30 ML Q4-6 PRN PRN 09/09 171 AC Hydroxide PO Benztropine Mesylate 1 MG Q6P PRN 09/09 171 AC Benztropine Mesylate 1 MG Q6P PRN 09/09 171 AC IM Benztropine Mesylate 1 MG Q6P PRN 09/09 0915 AC Buprenorphine/ 1 TAB DAILY 09/09 170 AC 09/11 Naloxone SL 0755 Bupropion HCl 150 MG DAILY 09/09 1700 AC 09/11 Gabapentin 1,200 MG TID 09/10 1400 AC 09/11 Haloperidol 5 MG Q6P PRN 09/09 171 AC Haloperidol 5 MG Q6P PRN 05/23 0915 AC Lorazepam 2 MG Q6P PRN 09/09 1714 AC Lorazepam 2 MG Q6P PRN 09/09 914 AC 09/09 Nicotine 14 MG DAILY 09/10 09 AC 09/11 Temazepam 15 MG AT BEDTIME NEED.. 09/09 1714 09/11
[2017-09-11 12:13] VITALS: BP 121/60
--- NOTE | 2017-09-11 12:14 | Patient Discharge Instructions ---
Psych Discharge Inst General Discharge Information Reason for Admission: texting what seemed suicide note Psy Discharge Primary Diag+ Unspecified Depressive DO Substance-Induced Dep DO Psy Discharge Secondary Diag+ Opioid Use DO Cocaine Use DO Summary Tests/Major Procedures There were no significant abnormalities in the lab work Studies Pending at DC: None Patient Instructions Contact Information Your Psychiatrist on [facility] was Alla BATES,Felix * If you are experiencing an emergency related to this hospitalization, please call [phone] to contact the treating psychiatrist or the psychiatrist-on- call. * To Request a copy of your medical records, please contact the Medical Records Department at [phone]. * To request results of studies pending at the time of discharge, please call [phone]. * Continue your Medications until directed to stop by your Healthcare provider. General Medication Information Please continue to take your new medications and your continued home medications , unless otherwise indicated on your discharge medication list, or unless directed by your MD or SWINE GENETICS RESEARCHER to stop them. Special Instructions Diet Regular Activity Normal - Tobacco Use Treatment Offered Post DC Medications Offered: Script Given-See Med List Post DC Tobacco Treatment Plan: Refused Tobacco Tx Pgm - EtOH/Drug Use D/O Treatment Offered Post DC Medications Offered: Script Given-See Med List Post DC EtOH/SubAbuse TX Plan: Other SubAbuse/Dual Pgm Metabolic Screening ([X]) Not Applicable, patient not on a neuroleptic. Advance Directives Does the Patient have Medical Advance Directives No/Refused further info Does Pt have Psychiatric Advance Directives? No/Refused further info Does Patient have a Designated Surrogate Decision Maker: No Information About Psychiatric Advance Directives Provided? Refused Discharge Plan Post Hospital Treatment Plan: [facility]
[2017-09-11] MEDS ORDERED: NICORELIEF2 MG PO (12:18)
[2017-09-11] MEDS ORDERED: BUPROPION XL150 MG PO (12:18)
--- NOTE | 2017-09-11 13:06 | SOCIAL WORKER PROG NOTE PSYCH ---
Social Work Progress Note Progress Note Confirmed with Carlos Enrique for our 3:15 meeting with his significant other. He asked about d/c after the meeting. I told him that it really depended on how things go. He said his Mom will be there as well. Called [facility] in [place]. Left a message informing of his admission and asked when the next walk-in eval is or if he should have an appt. Family meeting held with Carlos Enrique's Mother and girlfriend Helene. Dr. Gold was also in attendance. Mom and Helene both shared their concern about his drug use and needing a higher level of care at this point. They would like to see him go to rehab and they were disappointed that he didn't end up going to rehab from his detox with [facility]. Carlos Enrique was preoccupied with telling everyone he needs to go to [facility] and see what they say from there. His goal during the meeting really was about serving his interest in getting out of the hospital. Dr. Gold decided to have Carlos Enrique leave the meeting so we could talk without his disruption. Both Mom and Helene said he is in denial about what he needs. Helene said she barely sees him at the house other than to return home to sleep. She has been trying to get him out of the house for some time, due to his behaviors having an impact on her and their children. I asked if she was aware that Carlos Enrique was sharing that he was driving around under the influence with the children? She said he barely drives the kids and it is her and his Mother that do most of the driving. She has also told her kids not to ask him for rides. They are concerned about him leaving the hospital over the weekend and going out to use/ alliance party on a long weekend. They are concerned that nothing will change and that he will end up terrorizing Helene and the kids. She was encouraged to call the police if necessary. As a team we decided we were going to keep him over the weekend. Thought this was beneficial in terms of helping him have a little more time to process what is going on in his life and to help him make a better choice in terms of possibly going to rehab. Mom reports he does have significant issues that come to the surface when he is under the influence and that he needs to work on those issues. She didn't say specifically what it was, but it sounded trauma related. Dr. Gold brought Carlos Enrique back in the conference room after telling him he was not going to leave today. Carlos Enrique escalated in anger, yelling at Helene and arguing back and forth with his Mother. He was blaming them. I told him this was a team decision. After several attempts to calm him down and redirect him he continued to yell and escalate. I told him the meeting was over and attempted escort him out of the conference room. He was not listening to direction. Security was called. He finally went back on the unit after security came down and escorted him. He was given some additional medication to calm him down.
--- NOTE | 2017-09-11 15:10 | DISCHARGE SUMMARY REPORT-PSYCH ---
Visit Information Visit Dates/Diagnosis' Admission Date: 09/09/17 Discharge Date: 09/11/17 Reason for Admission: texting what seemed suicide note Psy Discharge Primary Diag: Unspecified Depressive DO Substance-Induced Dep DO Psy Discharge Secondary Diag: Opioid Use DO Cocaine Use DO Hospital Course Course Allergies: Coded Allergies: NO KNOWN ALLERGIES (NONE 09/11/17) Hospital Course/TX Response: Mental Status Examination The patient was steady on his feet. He was cooperative. He showed increased psychomotor activity/fidgetiness, No bizarre behaviors, He was talkative with some pressure, he was anxious/ restless, denied feeling depressed, denied thoughts of suicide, denied thoughts of homicide, denied hallucinations, denied feeling paranoid, there were no delusions during the interview, patient was coherent, there were no thought disorders, he was alert and oriented to time, place, and person. He showed reasonable attention and concentration during the interview, he did not seem to have difficulties with information processing. There were no deficits in his short-term memory Assessment: 37-year-old single white male who presented to the emergency room on a police emergency examination request after his girlfriend called 911 because she received texts from him allegedly talking of suicide. The patient adamantly denied all of that. And he claims that his girlfriend is lying out of spite Diagnoses: Unspecified depressive disorder Opioid use disorder on maintenance therapy Other specified personality disorder, some antisocial and narcissistic traits. Treatment Plan Update: may be discharged home after family meeting Buprenorphine/ 1 TAB DAILY Bupropion HCl 150 MG DAILY Gabapentin 1,200 MG TID DICTATED BY: Felix Gold MD Discharge HBIPS - Tobacco Use Treatment Offered - EtOH/Drug Use D/O Treatment Offered Metabolic Screening - Screen if on a Neuroleptic Medication - Metabolic screening should include: - Blood Pressure, BMI, Glucose or Hgb A1c, & a - Lipid profile from within the past 365 days. Discharge Instructions General Discharge Information Multiple Neuroleptics: () Not Applicable OR Document below three failed attempts at monotherapy, or a plan to taper to monotherapy, or augmentation of Clozapine. () Discharge Diet Regular Discharge Activity Normal Referrals Ordered Referrals Provider Referral 09/15/17 For Groups: [[facility]] [facility] Intensive Outpatient Program for mental health and substance use treatment Walk in hours: M, T, urs: 12:30-3pm [address] [place] [address] Provider Referral 09/16/17 For Groups: Outpatient Psychiatry [facility] Smoking [facility]essation [facility] 09/16/17 4pm [address] [place] [address] Prescriptions Stop taking the following medications: Gabapentin (Gabapentin) 400 MG CAPSULE ORAL THREE TIMES DAILY Qty = 180 Continue taking these medications: Buprenorphine HCl/Naloxone HCl (Suboxone 8 MG-2 MG Sl Film) 8 MG-2 MG FILM 1 Strip SUBLINGUAL DAILY Qty = 15 Comments: Last Taken:09/15/17 Time:8AM Bupropion HCl (Bupropion XL) 150 MG TAB.ER.24H 1 Tablet ORAL Every Morning Qty = 15 Comments: Last Taken:09/11/17 Time:8AM This prescription has been renewed Start taking the following new medications: Nicotine (Nicorelief) 2 MG GUM 2 Milligram ORAL EVERY 2 HOURS NEEDED as needed for cravings for tobacco Qty = 60 No Refills Comments: Last Taken:09/15/17 Time:9AM Gabapentin (Gabapentin) 400 MG CAPSULE 800 Milligram ORAL THREE TIMES DAILY Qty = 45 No Refills Comments: Last Taken:09/15/17 Time:9AM Bupropion HCl (Bupropion XL) 300 MG TAB.ER.24H 300 Milligram ORAL DAILY @8 AM Qty = 30 No Refills Comments: Last Taken:09/15/17 Time:9AM Chlorpromazine HCl (Chlorpromazine HCl) 25 MG TABLET 100 Milligram ORAL 4 TIMES A DAY as needed for ANXIETY/AGITATION/INSOMNIA Qty = 45 No Refills Comments: Last Taken:09/15/17 Time:9AM Chlorpromazine HCl (Chlorpromazine HCl) 25 MG TABLET 2 Tablet ORAL EVERY 6 HOURS NEEDED as needed for anxiety/agitation, or insomnia Qty = 60 No Refills Comments: Last Taken:TO START AT HOME Time: Studies Pending at Discharge None Copies To: [facility]
[2017-09-11] MEDS ORDERED: CHLORPROMAZINE25 M2 PO (15:28)
[2017-09-11 15:57] VITALS: BP 122/69
--- NOTE | 2017-09-11 16:46 | SOCIAL WORKER PROG NOTE PSYCH ---
Social Work Progress Note Progress Note Timber Management Professor Shira Banks wrote the below note after meeting with the patient: Data: Patient states his anxiety and stress level is a 10 on a scale of 1 to 10 (10 being the worst). Patient states he self-medicates with alcohol. Patient states during a text he stated jokingly he was going to kill himself to his g/ f. Girlfriend proceeded to call the clinical documentation developer and clinical documentation developer showed up at his friends house where he was to take him to [facility]. Patient states he doesnt belong here and he is waiting for his g/f and mom to come to a family session today and take him home. Patient states the relationship between him and his g/f is stressful and there is constant fighting over his drinking and the fact that he cheated in the past, but is not currently. Patient admits to drinking about 8-10 beers a day. He also stated that he will stop drinking at a certain point if he needs to machine operator picker his children from school. Patient states he has a 16 year old son and a 9 year old daughter. Patient also states that he dabbles with cocaine at times. Patient believes his substance use is solely for self-medicating the main issue which is his anxiety. Patient states he first had alcohol at age 14-15 years; but it became a problem between [age] years. Patient is currently 37 years old. Patient states he used opiates (Roxys) from 3615-1513 and did sell it as well , which landed him in trouble with the law. Assessment: Patient states his anxiety and stress levels are very high. Patient admits to relationship troubles and fighting. Patient is not admitting to a substance use disorder and states he doesnt need to drink, he just likes it. Patient has scattered thoughts through conversation and jumps from topic to topic. Patient is in Pre-Contemplation Stage of Change. Plan: Patient wants to get job and start working and go to [facility] in [place] because it is necessary for probation.
[2017-09-11 20:05] VITALS: BP 139/80
[2017-09-12 07:33] VITALS: BP 125/63
[2017-09-12 12:03] VITALS: BP 124/72
[2017-09-12 15:50] VITALS: BP 118/62
--- NOTE | 2017-09-12 17:18 | CP SOUTH PROGRESS NOTE PSYCH ---
Psych (Inpt) Progress Note Progress Note Include the following elements, when applicable: Involvement in the active treatment of the patient with behavioral observations of the patient and the patient's response to the treatment. Review of the ongoing treatment process in the context of the treatment plan. Indication of how multi-disciplinary staff members are carrying out the treatment plan. Plans for future interventions and recommendations for revision of the treatment plan. Liaison with other physicians/providers. Progress Note: Patient seen one-to-one and discussed with the nursing staff. The patient denies suicidal/homicidal ideation, auditory/visual hallucinations or side effects from medication. Complaints of intense anxiety. The patient was saying that he used to see Dr. Dang as an outpatient psychiatrist. He said that they were working on reducing the gabapentin because of lack of effectiveness. He says that Thorazine seems to be helpful with anxiety, nevertheless he believes he needs more. According to the nursing report he slept through the night, waking only to go to the restroom and falling back to sleep. We agreed to reduce gabapentin to 800 mg 3 times a day and increase Thorazine to 75 mg 3 times a day. The patient understands the risks/benefits/side effects of the medication and agrees to continue taking them as noted. We will continue present medication regimen, observation, symptom monitoring. The patient will be followed up daily by the unit psychiatrist.
[2017-09-12 19:45] VITALS: BP 134/83
[2017-09-13 07:50] VITALS: BP 114/71
[2017-09-13 12:37] VITALS: BP 123/71
--- NOTE | 2017-09-13 13:01 | CP SOUTH PROGRESS NOTE PSYCH ---
Psych (Inpt) Progress Note Progress Note Include the following elements, when applicable: Involvement in the active treatment of the patient with behavioral observations of the patient and the patient's response to the treatment. Review of the ongoing treatment process in the context of the treatment plan. Indication of how multi-disciplinary staff members are carrying out the treatment plan. Plans for future interventions and recommendations for revision of the treatment plan. Liaison with other physicians/providers. Progress Note: The patient was seen one-to-one and discussed with the nursing staff. He is a 37 years old single male looking much younger than stated age, in treatment for depression with suicidal ideation,Opioid use disorder (Suboxone maintenance), alcohol use disorder. He continues to be hyperactive, very energetic, reporting improved anxiety by liberal use of Thorazine. The patient denies suicidal/homicidal ideation, auditory/visual hallucinations or side effects from medication. The patient has good insight and judgment, and is motivated for treatment. Discharge plan is to return to Dr. Dang, his outpatient psychiatrist for medication management and psychotherapy. The patient understands the risks/benefits/side effects from the medication, and is agreeable to take them. He says that the increased in Thorazine (75 mg 3 times a day as needed for anxiety) and gabapentin reduction were very helpful. We will continue present medication regimen, observation, symptom monitoring. The patient will be followed up daily by the unit psychiatrist.
[2017-09-13 15:37] VITALS: BP 117/70
[2017-09-13 19:56] VITALS: BP 138/74
[2017-09-14 08:00] VITALS: BP 122/59
--- NOTE | 2017-09-14 08:30 | CP SOUTH PROGRESS NOTE PSYCH ---
Psych (Inpt) Progress Note Progress Note Include the following elements, when applicable: Involvement in the active treatment of the patient with behavioral observations of the patient and the patient's response to the treatment. Review of the ongoing treatment process in the context of the treatment plan. Indication of how multi-disciplinary staff members are carrying out the treatment plan. Plans for future interventions and recommendations for revision of the treatment plan. Liaison with other physicians/providers. Progress Note: Subjective: Patient states Thorazine was helpful but continues to endorse high anxiety. Denies other side effects to medications. Feels the gabapentin is doing nothing. Patient denies SI/HI/AVH/SIB. Patient eating and sleeping well. Patient states that he is expecting discharge tomorrow and will follow-up with Dr. Dang at the [facility] [place] later in the week. Meds reviewed, patient interested in increasing Thorazine, risks and benefits discussed, patient in agreement. Also discussed benefits of naltrexone is anti-craving for alcohol and patient will discuss further with outpatient electrical controls designer. Objective: Patient was adherent with medications and in behavioral control. VSS. Current Medications Sig/Abhishek Start time Last Medication Dose Route Stop Time Status Admin Acetaminophen 650 MG Q4P PRN 09/09 1715 AC 09/12 PO 1728 Al Hydroxide/Mg 30 ML Q4-6 PRN PRN 09/09 171 AC Hydroxide PO Benztropine Mesylate 1 MG Q6P PRN 09/09 0915 AC PO Buprenorphine/ 1 TAB DAILY 09/09 1701 09/14 Naloxone SL 0801 Bupropion HCl 300 MG 09/12 0800 AC 09/14 PO 0801 Chlorpromazine 75 MG Q4 HRS NEEDED PRN 09/12 1715 AC 09/14 PO 0803 Gabapentin 800 MG TID 09/12 2100 AC 09/14 PO 0801 Haloperidol 5 MG Q6P PRN 09/09 0915 AC PO Hydroxyzine HCl 50 MG AT BEDTIME NEED.. 09/13 2215 09/13 PO 2219 Ibuprofen 600 MG Q4P PRN 09/09 171 AC PO Lorazepam 2 MG Q6P PRN 09/09 0915 AC 09/11 PO 2235 Magnesium Hydroxide 30 ML AT BEDTIME PRN 09/09 171 AC PO Nicotine 4 MG Q2 HRS NEEDED PRN 09/12 1845 AC 09/13 PO 2002 Nicotine 14 MG DAILY 09/10 0900 AC 09/14 TOP 0802 Vital Signs Date Time Temp Pulse Resp B/P B/P Pulse O2 O2 Flow FiO2 Mean Ox Delivery Rate 09/14 08 98.2 91 122/59 09/13 1956 99.9 98 138/74 09/13 1537 87 117/70 09/13 1237 83 123/71 MSE: General: Patient alert and oriented, good hygiene, multiple tattoos, intense and demanding, no apparent distress. Speech: Moderate rate and volume, normal prosody, fluent. Motor: No tics, tremors, stereotypy or other abnormal movements apparent. Mood: "Alright." Affect: Intense, demanding, mildly constricted, mood congruent, non-labile, fairly well related. Thought process: Circumstantial Thought content: No SI/HI/AVH/SIB. No apparent grandiosity, delusions, paranoia , obsessions, but fixated on medication regimen. Cognition: No apparent deficits in memory, attention, concentration. Insight: Fair. Judgment: Fair. A&P: 37-year-old male with history of depression, opiate use disorder, cocaine use disorder, alcohol use disorder and unemployed admitted on [facility] after taxing a suicide note. Pt is reportedly improved over weekend. Gabapentin was decreased to 800 mg 3 times a day and Thorazine was increased to 75 mg 3 times a day which patient felt helped. However patient interested in further increase of Thorazine to assist with anxiety which she states has gone from a 7a 10. -Maintain safety, every 15 minute checks -Increase Thorazine to 100 mg 4 times a day for anxiety and mood. -Continue other medications as above -Continue to taper off gabapentin -Patient may benefit from addition of naltrexone but will defer to outpatient electrical controls designer -Patient states discharge is planned for Thursday -Continue plan
[2017-09-14 12:08] VITALS: BP 121/63
[2017-09-14 15:59] VITALS: BP 132/67
[2017-09-14 20:00] VITALS: BP 138/73
[2017-09-15 07:55] VITALS: BP 133/80
--- NOTE | 2017-09-15 08:48 | SOCIAL WORKER PROG NOTE PSYCH ---
Social Work Progress Note Progress Note Dr. Gold and I met with Carlos Enrique together this morning. He was polite and much less agitated than when we last met on Thursday. He reported that his anxiety was less and that it was helpful to stay here through the weekend. He is having reduced cravings for alcohol. He is interested in medication to help with cravings. He is on Suboxone though, which would limit what he may be able to take. Asked if he visited with family over the weekend? He said his daughter and Helene came in on Thursday and it went okay. He is reporting that there is no issue in him returning to the residence with Helene and the kids. He talked about having to remain clean and sober or else he will be sentenced to senior living time. He doesn't feel that a referral to rehab is necessary at this time , he is only interested in trying IOP. Got anxious when we started talking about rehab. He talks continuously basically sharing his thoughts about things and has difficulty with others directing the conversation. Future oriented at this time, thinking about work and staying out of senior living. [facility] has walk in hours ,, from 12:30-3. Let Carlos Enrique know the hours for the walk in eval at [facility]. Encouraged him to go today. He said he was going to. Planning to walk home after d/c today. Called Helene (significant other) and left a voicemail stating d/c today and f/u plans.
--- NOTE | 2017-09-15 10:26 | SOCIAL WORKER PROG NOTE PSYCH ---
Social Work Progress Note Progress Note Determination Status: PENDED The services requested require additional review. You will be contacted regarding the status of this request if further information is needed. An authorization decision will be made within the required timeframes and details of that decision may be found under the member's authorization history. Member Name Member ID Member Subscriber Name Subscriber ID AIDEN AVINA [id number] 1980 AIDEN AVINA [id number] Pended Authorization # Client Authorization # Type of Request [id number] CONCURRENT Date of Admission/ Start of Services Requested From Submission Date 09/09/2017 09/12/2017 09/15/2017
[2017-09-15] MEDS ORDERED: GABAPENTIN400 M2 PO (10:29)
[2017-09-15] MEDS ORDERED: BUPROPION XL300 M1 PO (10:29)
[2017-09-15] MEDS ORDERED: CHLORPROMAZINE25 M2 PO (10:29)
--- NOTE | 2017-09-15 11:46 | CP SOUTH PROGRESS NOTE PSYCH ---
Psych (Inpt) Progress Note Progress Note Treatment team discussed Pt's progress, treatment plan, and aftercare plans. Treatment team included: LCSWs, RNs, Group & Activity Therapy staff, and psychiatrist. Mental Status Examination The patient was steady on his feet. He was cooperative. He showed increased psychomotor activity/fidgetiness; no bizarre behaviors; he was talkative with some pressure, he was anxious/ restless, denied feeling depressed, denied thoughts of suicide, denied thoughts of homicide, denied hallucinations, denied feeling paranoid, there were no delusions during the interview, patient was coherent, there were no thought disorders, he was alert and oriented to time, place, and person. He showed reasonable attention and concentration during the interview, he did not seem to have difficulties with information processing. There were no deficits in his short-term memory Assessment: 37-year-old single white male who presented to the emergency room on a police emergency examination request after his girlfriend called 911 because she received texts from him allegedly talking of suicide. The patient adamantly denied all of that. And he claims that his girlfriend is lying out of spite Diagnoses: Unspecified depressive disorder Opioid use disorder on maintenance therapy Other specified personality disorder, some antisocial and narcissistic traits. Treatment Plan Update: D/C Home Diagnoses: Unspecified depressive disorder Opioid use disorder on maintenance therapy Other specified personality disorder, some antisocial and narcissistic traits. Treatment Plan Update: may be discharged home after family meeting Buprenorphine/ 1 TAB DAILY Bupropion HCl 150 MG DAILY Gabapentin 1,200 MG TID
--- NOTE | 2017-09-15 12:46 | SOCIAL WORKER PROG NOTE PSYCH ---
Social Work Progress Note [place]ed [place]) [place] [facility] [place]: Health Summary Faxed to: [facility] Fax #: [phone] Faxed by: Trinh Jaquez Date faxed: 09/15/17 Time Faxed: [phone]
== END 2017-09-15 11:29 | DRG 754 ==
LOC: ERH 20:38 → ERHI 09-09 16:28 → CP SOUTH 09-09 16:28
PROVIDERS: Emergency Medicine
DX: F32.9 Major depressive disorder, single episode, unspecified (principal); F19.94 Other psychoactive substance use, unspecified with psychoactive substance-induced mood disorder; F11.90 Opioid use, unspecified, uncomplicated; F14.90 Cocaine use, unspecified, uncomplicated; Z72.89 Other problems related to lifestyle
CPT/HCPCS: 80307; 93005; 93010; G0480